=== PATIENT | female | born 1960 | race Caucasian/White ===

== ENCOUNTER 2016-09-11 06:01 | Day surgery (SDC) | payer OTHER ==
[~2016-09-11] VITALS: Ht 182.9 cm; Wt 124.7 kg
[~2016-09-11 06:01] MED LIST: ACETAMINOPHEN/O1 TA3 PO; AMLODIPINE BESY10 M1 PO; COL100 PO; CYMBALTA60 M1 PO; D3 20002000 IU PO; HYZAAR1 TA2 PO; LAC PO; PERCOCET1 TA2 PO; TRAMADOL HCL50 MG PO; ULT50 PO; ZITHROMAX Z-PA250 MG PO
[2016-09-11 06:19] VITALS: BP 138/91
[2016-09-11 09:01] VITALS: BP 133/70
== END 2016-09-11 08:50 | disposition home or self-care (01) ==
LOC: DS 06:01 → OR 07:30 → DS 08:50
PROVIDERS: Anesthesiology Pain Medicine
PROC: 3E0R3BZ Introduction of Anesthetic Agent into Spinal Canal, Percutaneous Approach (ICD-10-PCS; 2016-09-11)
PROC: 3E0R33Z Introduction of Anti-inflammatory into Spinal Canal, Percutaneous Approach (ICD-10-PCS; principal; 2016-09-11 07:30)
DX: M51.16 Intervertebral disc disorders with radiculopathy, lumbar region (principal); M47.26 Other spondylosis with radiculopathy, lumbar region; G89.4 Chronic pain syndrome; M79.7 Fibromyalgia; I10 Essential (primary) hypertension; E66.9 Obesity, unspecified; Z68.38 Body mass index [BMI] 38.0-38.9, adult
CPT/HCPCS: 77003; J2001; J2250; J3010; J3301; J7040

== ENCOUNTER → 2017-04-09 | Outpatient (CLI) | payer OTHER | END | disposition home or self-care (01) | LOC: MA 14:42 | PROC: BH02ZZZ Plain Radiography of Bilateral Breasts (ICD-10-PCS; principal; 2017-04-09) | DX: Z12.31 Encounter for screening mammogram for malignant neoplasm of breast (principal) | CPT/HCPCS: G0204 ==

== ENCOUNTER → 2018-06-15 | Outpatient (CLI) | payer OTHER | END | disposition home or self-care (01) | LOC: MI 06:53 | PROC: BQ38ZZZ Magnetic Resonance Imaging (MRI) of Left Knee (ICD-10-PCS; principal; 2018-06-15) | DX: M25.562 Pain in left knee (principal); M17.12 Unilateral primary osteoarthritis, left knee ==

== ENCOUNTER → 2019-01-11 | Outpatient (CLI) | payer OTHER | END | disposition home or self-care (01) | LOC: RD 09:31 | DX: R13.10 Dysphagia, unspecified (principal) ==

== ENCOUNTER 2019-02-24 07:10 | Day surgery (SDC) | payer OTHER ==
[~2019-02-24] VITALS: Ht 182.9 cm; Wt 120.2 kg
[2019-02-24 07:52] VITALS: BP 143/86
[2019-02-24 10:03] VITALS: BP 136/83
== END 2019-02-24 10:30 | disposition home or self-care (01) ==
LOC: GI 07:10 → OR 08:30 → GI 10:30
DX: K21.0 Gastro-esophageal reflux disease with esophagitis (principal); K44.9 Diaphragmatic hernia without obstruction or gangrene; K29.50 Unspecified chronic gastritis without bleeding; I10 Essential (primary) hypertension; E66.9 Obesity, unspecified; M79.7 Fibromyalgia; Z68.37 Body mass index [BMI] 37.0-37.9, adult; Z79.899 Other long term (current) drug therapy; Z98.890 Other specified postprocedural states; Z88.8 Allergy status to other drugs, medicaments and biological substances
CPT/HCPCS: 43235; J1200; J1610; J2250; J2310; J3010; J3490

== ENCOUNTER → 2019-03-15 | Outpatient (CLI) | payer OTHER ==
[2019-03-15 08:18] LABS: BASOPHIL % 0.8 % (0-2); PLATELET COUNT 274 x10^3mcL (130-400)
[2019-03-15 08:19] LABS: RED CELL DISTRIBUTION WIDTH 15.1 % (11.5-14.5)
[2019-03-15 08:38] LABS: ALBUMIN 3.7 g/dL (3.4-5.0); ALKALINE PHOSPHATASE 102 U/L (46-116); ALT/SGPT 31 U/L (14-59); AST/SGOT 11 U/L (15-37); BILIRUBIN TOTAL 0.33 mg/dL (0.20-1.00); CALCIUM 8.8 mg/dL (8.5-10.1); CARBON DIOXIDE 32.3 mmol/L (21-32); CHLORIDE SERUM 100 mmol/L (98-107); CREATININE SERUM 0.8 mg/dL (0.6-1.0); GFR1 > 60 mL/min; GLUCOSE SERUM 98 mg/dL (74-106); POTASSIUM SERUM 3.9 mmol/L (3.5-5.1); SODIUM SERUM 139 mmol/L (136-145)
[2019-03-16 11:56] LABS: CHOLESTEROL/HDL RATIO 3.1
== END | disposition home or self-care (01) ==
LOC: MA 07:46
PROC: BH02ZZZ Plain Radiography of Bilateral Breasts (ICD-10-PCS; principal; 2019-03-15)
DX: I10 Essential (primary) hypertension (principal); Z12.31 Encounter for screening mammogram for malignant neoplasm of breast
CPT/HCPCS: 77067

== ENCOUNTER 2019-10-26 14:00 | Emergency (ER) | payer OTHER, SELFPAY ==
[~2019-10-26] VITALS: Ht 180.3 cm; Wt 127.0 kg
[2019-10-26 14:23] VITALS: Ht 180.3 cm; Wt 127.0 kg
[2019-10-26 15:06] LABS: BASOPHIL % 0.3 % (0-2); PLATELET COUNT 246 x10^3mcL (130-400)
[2019-10-26 15:07] LABS: RED CELL DISTRIBUTION WIDTH 15.3 % (11.5-14.5)
[2019-10-26 15:21] LABS: ALBUMIN 3.7 g/dL (3.4-5.0); ALKALINE PHOSPHATASE 86 U/L (46-116); ALT/SGPT 28 U/L (14-59); AST/SGOT 16 U/L (15-37); BILIRUBIN TOTAL 0.39 mg/dL (0.20-1.00); CALCIUM 8.8 mg/dL (8.5-10.1); CARBON DIOXIDE 32.7 mmol/L (21-32); CHLORIDE SERUM 100 mmol/L (98-107); CREATININE SERUM 0.8 mg/dL (0.6-1.0); GFR1 > 60 mL/min; GLUCOSE SERUM 110 mg/dL (74-106); POTASSIUM SERUM 3.7 mmol/L (3.5-5.1); SODIUM SERUM 138 mmol/L (136-145)
[2019-10-26 16:20] VITALS: BP 127/82
== END 2019-10-26 16:20 | disposition home or self-care (01) ==
LOC: ED 14:00
PROVIDERS: Emergency Medicine
DX: U07.1 COVID-19 (principal); F41.9 Anxiety disorder, unspecified
CPT/HCPCS: 83880; J1885; J7030; Q0092; U0003-CS

== ENCOUNTER 2019-11-30 06:03 | Day surgery (SDC) | payer OTHER ==
[2019-11-24 08:05] LABS: microscopic required? NO
[2019-11-24 08:16] LABS: BASOPHIL % 0.8 % (0-2); PLATELET COUNT 264 x10^3mcL (130-400)
[2019-11-24 08:18] LABS: UA SPECIFIC GRAVITY >=1.030 (1.005-1.035); urine erythrocyte NEGATIVE (NEGATIVE)
[2019-11-24 08:20] LABS: RED CELL DISTRIBUTION WIDTH 15.3 % (11.5-14.5)
[2019-11-24 08:30] LABS: CALCIUM 9.1 mg/dL (8.5-10.1); CARBON DIOXIDE 32.4 mmol/L (21-32); CHLORIDE SERUM 101 mmol/L (98-107); CREATININE SERUM 0.8 mg/dL (0.6-1.0); GFR1 > 60 mL/min; GLUCOSE SERUM 111 mg/dL (74-106); POTASSIUM SERUM 3.8 mmol/L (3.5-5.1); SODIUM SERUM 140 mmol/L (136-145)
[2019-11-24 08:35] LABS: ALBUMIN 3.7 g/dL (3.4-5.0); ALKALINE PHOSPHATASE 86 U/L (46-116); ALT/SGPT 25 U/L (14-59); AST/SGOT 14 U/L (15-37); BILIRUBIN TOTAL 0.5 mg/dL (0.20-1.00); TOTAL PROTEIN, SERUM 7.8 g/dL (6.4-8.2)
[~2019-11-30] VITALS: Ht 182.9 cm; Wt 129.3 kg
[~2019-11-30 06:03] MED LIST changes: +DULOXETINE HYDR60 MG PO; +GLUCOSAMINE & C1 CA3 PO; +LOSARTAN POTASS1 TA8 PO; +NOR10 PO; +PYR50 PO; +ULTRAM50 MG PO; +VITAMIN B122500 MC1 PO; +[UNRECOGNIZED DRUG - CODE] PO
[2019-11-30 06:19] VITALS: BP 144/88
[2019-11-30 16:35] VITALS: BP 113/80
== END 2019-11-30 16:30 | disposition home or self-care (01) ==
LOC: DS 06:03 → EDSTATUS 16:30 → MU 16:30 → DS 16:30
PROVIDERS: ATTEND Orthopaedic Surgery
DX: M17.12 Unilateral primary osteoarthritis, left knee (principal); I10 Essential (primary) hypertension; K21.9 Gastro-esophageal reflux disease without esophagitis; M81.0 Age-related osteoporosis without current pathological fracture; E66.01 Morbid (severe) obesity due to excess calories; Z68.41 Body mass index [BMI] 40.0-44.9, adult
CPT/HCPCS: 94150; C1713; C1776; J0690; J1170; J1885; J2250; J2270; J2405; J2704; J3010; J3490; J7030; Q0092

== ENCOUNTER → 2020-02-07 | Outpatient (CLI) | payer OTHER ==
[2020-02-07 08:33] LABS: BASOPHIL % 0.5 % (0-2); PLATELET COUNT 338 x10^3mcL (130-400)
[2020-02-07 08:39] LABS: RED CELL DISTRIBUTION WIDTH 15.3 % (11.5-14.5)
[2020-02-07 09:15] LABS: ALBUMIN 3.7 g/dL (3.4-5.0); ALKALINE PHOSPHATASE 113 U/L (46-116); ALT/SGPT 30 U/L (14-59); AST/SGOT 15 U/L (15-37); BILIRUBIN TOTAL 0.33 mg/dL (0.20-1.00); CALCIUM 9.2 mg/dL (8.5-10.1); CARBON DIOXIDE 30.1 mmol/L (21-32); CHLORIDE SERUM 105 mmol/L (98-107); CHOLESTEROL 175 mg/dL (<200); CREATININE SERUM 0.7 mg/dL (0.6-1.0); GFR1 > 60 mL/min; GLUCOSE SERUM 117 mg/dL (74-106); POTASSIUM SERUM 4.1 mmol/L (3.5-5.1); SODIUM SERUM 136 mmol/L (136-145); TRIGLYCERIDES 121 mg/dL (<150)
[2020-02-07 09:17] LABS: CHOLESTEROL/HDL RATIO 2.8; HDL CHOLESTEROL 62 mg/dL (40-60)
== END | disposition home or self-care (01) ==
LOC: MA 08:03
DX: I10 Essential (primary) hypertension (principal); E78.5 Hyperlipidemia, unspecified; Z12.31 Encounter for screening mammogram for malignant neoplasm of breast

== ENCOUNTER → 2020-03-30 | Outpatient (CLI) | payer OTHER | END | disposition home or self-care (01) | LOC: MA 08:52 | PROC: BH02ZZZ Plain Radiography of Bilateral Breasts (ICD-10-PCS; principal; 2020-03-30) | DX: Z12.31 Encounter for screening mammogram for malignant neoplasm of breast (principal) | CPT/HCPCS: 77067 ==